=== PATIENT | male | born 1955 | race Caucasian/White ===

== ENCOUNTER 2016-11-15 02:28 | Emergency (ER) ==
[2016-11-15 03:08] LABS: MANUAL DIFF NEEDED? NO
[2016-11-15 03:12] LABS: BASO% 1.4 % (0.0-0.8); EOS# 0.01 X1000 (0.0-0.7); EOS% 0.2 % (0.0-10.0); HEMATOCRIT 37.9 % (42.0-52.0); HEMOGLOBIN 13.5 g/dL (14.0-18.0); IMM GRAN# 0.03 X1000 (0.0-0.04); IMM GRAN% 0.6 % (0.0-0.5); MCH 34.2 PG (27-31); MCHC 35.6 g/dL (33-37); MCV 95.9 FL (81-99); MONO# 0.96 X1000 (0.11-0.59); MONO% 18.5 % (1.7-9.3); NEUT% 52.3 % (42.2-75.2); PLT 199 X1000 (130-400); RBC 3.95 XMIL (4.7-6.1)
[2016-11-15] MEDS ORDERED: VALIUM IV ONE (03:21)
[2016-11-15] MEDS ORDERED: REGLAN IV ONE (03:21)
--- NOTE | 2016-11-15 03:28 | PROVIDER DOCUMENTATION ---
[id number] Abuse/Overdose - General Chief Complaint: Abdominal Pain Stated Complaint: STOMACH PAIN/HIGH BP Time Seen by Provider: 11/15/16 03:06 Source: patient, family Allergies/Adverse Reactions: Allergies Allergy/AdvReac Type Severity Reaction Status Date / Time codeine Allergy HIVES Verified 11/15/16 02:45 Home Medications: Home Medication List Medication Instructions Recorded Confirmed Last Taken Type Allopurinol 300 mg PO QHS 10/21/15 11/15/16 10/20/15 History Clopidogrel Bisulfate [Plavix] 75 mg PO QHS 10/21/15 11/15/16 10/20/15 History Montelukast Sodium [Singulair] 10 mg PO DAILY 10/21/15 11/15/16 10/20/15 History Omeprazole [Prilosec] 40 mg PO DAILY #30 capsule. 10/22/15 11/15/16 Unknown Rx Azelastine 205.5 Mcg Nasal Spr 1 spray DAILY PRN 11/15/16 11/15/16 Unknown History [Astepro Nasal Zalma] Lisinopril/Hydrochlorothiazide 1 tab PO DAILY 11/15/16 11/15/16 Unknown History [Lisinopril-Hctz 10-12.5 mg Tab] Metoclopramide [Reglan] 5 mg PO TID 11/15/16 11/15/16 Unknown History SIMVAstatin [Zocor] 40 mg PO HS 11/15/16 11/15/16 Unknown History - History of Present Illness-Drug/Alcohol This episode of drinking or use began:: other (3 months) Severity: reports: severe (1/2 gallon / day) Situational problems related to:: reports: lost job Psychiatric Complaints: reports: agitated Associated Symptoms: reports: fatigue, headaches Any injuries associated with this episode of intoxication?: No Similar Symptoms Previously?: Yes Recently seen or treated by another doctor?: No - Substance Abuse Substance Use: reports: alcohol Age drug/alcohol abuse began?: 13 - Alcohol Abuse Last Drink?: 02:00 Type and amount of last drink?: vodka Usually drinks:: daily Usual alcohol intake amount?: 1/2 gal - Detox/Hospitalizations Previous detox/rehab admissions?: Yes Where was last detox?: [facility] Currently enrolled in a Methadone Program?: No - Overdose Intentional drug overdose?: No Suicide Risk Assessment: male sex, drug or ETOH abuse Clinician's estimation of suicide risk?: uncertain risk Review of Systems - Adult - REVIEW OF SYSTEMS - ADULT Constitutional: reports: fatique, night sweats Eyes: reports: no symptoms reported Ears, Nose, Mouth & Throat: reports: no symptoms reported Cardiovascular: reports: no symptoms reported Respiratory: reports: no symptoms reported Gastrointestinal: reports: abdominal pain, nausea, vomiting Genitourinary: reports: no symptoms reported Musculoskeletal: reports: no symptoms reported Integumentary: reports: no symptoms reported Neurological: reports: headache/migraines Psychiatric: reports: no symptoms reported Endocrine: reports: no symptoms reported Hematologic/Lymphatic: reports: no symptoms reported Allergic/Immunologic: reports: no symptoms reported All Other Systems: Reviewed and Negative Past History - Adult - PAST MEDICAL HISTORY-ADULT Review of Records: reports: Old Records Reviewed, Nursing Assessment Review, Medications Reviewed, Social history reviewed & non-contributory. Major Childhood Illnesses: reports: denies history Cardiovascular: reports: HTN Respiratory: reports: COPD Gastrointestinal: reports: denies history Obstetrical/Gynecological: reports: denies history Genitourinary: reports: denies history Musculoskeletal: reports: denies history Neurological: reports: denies history Psychiatric: reports: depression Endocrine/Immune: reports: denies history Other Conditions: reports: denies history - PRIOR SURGERIES/PROCEDURES Surgical/Procedure History: reports: reviewed, not pertinent - PRIOR HOSPITALIZATIONS Prior Hospitalizations: reports: for similar symptoms - IMMUNIZATION STATUS Childhood Immunizations: UTD Flu Vaccine: UTD - FAMILY HISTORY Family History: reviewed, not pertinent - SOCIAL HISTORY Smoking: cigarettes Substance Use: none presently/history of abuse Alcohol Use Frequency: every day Number of drinks per typical drinking period:: 16-20 drinks Living Situation: family Physical Exam-General - PHYSICAL EXAM-ADULT Initial Vital Signs Reviewed: Yes - CONSTITUTIONAL General Appearance: severe distress, obese - EYES Eyes: PERRL/EOMI, sclera injected - HEAD, EARS, NOSE, MOUTH & THROAT HENMT: normocephalic/atraumatic, moist mucous membranes, normal ENT inspection, TMs normal, pharynx normal - NECK Neck: non-tender, full range of motion - RESPIRATORY Respiratory: no respiratory distress, crackles - CARDIOVASCULAR Cardiovascular: regular rate, rhythm, tachycardia - CHEST (BREASTS) Chest/Breast: deferred - GASTROINTESTINAL (ABDOMEN) Abdominal Exam: normal bowel sounds, distended, tenderness (epigastric) - GENITOURINARY Male Genitalia: deferred Rectal Exam: deferred Hemoccult Exam: deferred - LYMPHATIC Lymphatic: no adenopathy - MUSCULOSKELETAL Back Exam: no CVA tenderness, no vertebral tenderness Extremity: normal range of motion, non-tender, normal gait, no pedal edema Peripheral Pulses: radial (R): 3+, radial (L): 3+ - SKIN Integumentary: normal color, normal turgor - NEUROLOGIC Neurologic: grossly normal, no motor/sensory deficits - PSYCHIATRIC Psych/Mental Status: oriented x 3, anxious, disheveled, depressed affect Departure - Departure Time of Disposition Order: 06:00 DIAGNOSIS: Alcohol withdrawal delirium Disposition: [facility] Certified Medical Emergency: Emergent Condition: Fair Additional Instructions: see intake at [facility] this A.M.
[2016-11-15 03:46] LABS: AGAP 30; ALBUMIN 4.6 g/dL (3.5-5.0); ALKALINE PHOSPHATASE 58 U/L (32-122); AMYLASE 74 U/L (20-200); BUN 12 mg/dL (8-22); CALCIUM 8.4 mg/dL (8.8-10.2); CHLORIDE 83 mmol/L (98-107); COSMO 255; GOT 87 U/L (10-34); GPT 60 U/L (10-44); LIPASE 112 U/L (13-60); POTASSIUM 3.6 mmol/L (3.5-5.1); SODIUM 127 mmol/L (136-145); TCO2 14 mmol/L (25-35); TOTAL PROTEIN 7.2 g/dL (6.3-8.3)
[2016-11-15] MEDS ORDERED: PHENERGAN IV ONE (05:40)
[2016-11-15] MEDS ORDERED: SODIUM CHLORIDE 0.9% INJ ONE (05:40)
[2016-11-15 06:05] VITALS: BP 144/97
== END 2016-11-15 06:04 | disposition home or self-care (01) ==
LOC: P.ED 02:28
DX: F10.231 Alcohol dependence with withdrawal delirium (principal); R53.83 Other fatigue; R51 Headache; R61 Generalized hyperhidrosis; R11.2 Nausea with vomiting, unspecified; I10 Essential (primary) hypertension; R00.0 Tachycardia, unspecified; R10.13 Epigastric pain; J44.9 Chronic obstructive pulmonary disease, unspecified; E66.9 Obesity, unspecified; F32.9 Major depressive disorder, single episode, unspecified; F17.210 Nicotine dependence, cigarettes, uncomplicated; Z79.51 Long term (current) use of inhaled steroids; Z79.899 Other long term (current) drug therapy; Z79.02 Long term (current) use of antithrombotics/antiplatelets
CPT/HCPCS: 80053; 82150; 83690; 85025; 96374; 96375; J2550; J2765; J3360

== ENCOUNTER 2016-11-15 10:57 | Inpatient (IN) ==
[2016-11-15] MEDS ORDERED: M.V.I.-12 10 ML, FOLIC ACID 1 MG, MAGNESIUM SULFATE 1 GM, THIAMINE 100 MG in NS 1,000 ML IV ONE (12:43)
[2016-11-15] MEDS ORDERED: MAALOX PLUS LIQUID PO PRN (12:43)
[2016-11-15] MEDS ORDERED: SENOKOT PO PRN (12:43)
[2016-11-15] MEDS ORDERED: PHENERGAN PO PRN (12:43)
[2016-11-15] MEDS ORDERED: DULCOLAX PR PRN (12:43)
[2016-11-15] MEDS ORDERED: ATIVAN PO PRN (12:43)
[2016-11-15] MEDS ORDERED: MOTRIN PO PRN (12:43)
[2016-11-15] MEDS ORDERED: AMBIEN PO PRN (12:43)
[2016-11-15] MEDS ORDERED: ZOFRAN IV PRN (12:43)
[2016-11-15] MEDS ORDERED: IMODIUM PO PRN (12:43)
[2016-11-15] MEDS ORDERED: SALINE LOCK IV FLUID XX ONE (12:43)
[2016-11-15] MEDS ORDERED: TUBERSOL ID ONE (12:43)
[2016-11-15] MEDS ORDERED: BENTYL PO PRN (12:43)
[2016-11-15] MEDS: LIBRIUM PO SCH ×2 (13:06→18:57)
[2016-11-15 13:42] LABS: MANUAL DIFF NEEDED? NO
[2016-11-15 13:44] LABS: BASO% 0.3 % (0.0-0.8); EOS# 0.01 X1000 (0.0-0.7); EOS% 0.2 % (0.0-10.0); HEMOGLOBIN 13.2 g/dL (14.0-18.0); IMM GRAN# 0.03 X1000 (0.0-0.04); IMM GRAN% 0.5 % (0.0-0.5); LYMPH% 19.3 % (20.5-51.1); MCH 33.8 PG (27-31); MCHC 35.7 g/dL (33-37); MCV 94.6 FL (81-99); MONO# 0.99 X1000 (0.11-0.59); MONO% 15.9 % (1.7-9.3); MPV 9.4 FL (7.4-10.4); NEUT% 63.8 % (42.2-75.2); PLT 187 X1000 (130-400); RBC 3.91 XMIL (4.7-6.1)
[2016-11-15 14:07] LABS: AGAP 22; ALBUMIN 4.7 g/dL (3.5-5.0); ALKALINE PHOSPHATASE 60 U/L (32-122); AMYLASE 82 U/L (20-200); BUN 14 mg/dL (8-22); CALCIUM 8.9 mg/dL (8.8-10.2); CHLORIDE 81 mmol/L (98-107); COSMO 253; GOT 107 U/L (10-34); GPT 61 U/L (10-44); LIPASE 136 U/L (13-60); POTASSIUM 3.4 mmol/L (3.5-5.1); SODIUM 124 mmol/L (136-145); TCO2 21 mmol/L (25-35); TOTAL PROTEIN 7.3 g/dL (6.3-8.3)
[2016-11-15 14:09] LABS: INR 1.01 (0.86-1.15); PROTIME 13.6 Seconds (12.1-15.5); PTT PL 24.1 Seconds (22.6-43.9)
[2016-11-15 14:23] LABS: URINE SOURCE VOIDED
[2016-11-15 14:53] LABS: BILIRUBIN URINE NEGATIVE (NEGATIVE); BLOOD URINE TRACE (NEGATIVE); CLARITY CLEAR (CLEAR); COLOR AMBER; GLUCOSE URINE NEGATIVE (NEGATIVE); LEUKOCYTES URINE TRACE (NEGATIVE); NITRITE URINE NEGATIVE (NEGATIVE); PH URINE 6.5; PROTEIN URINE 1+(30 mg/dL) mg/dL (NEGATIVE); SP GRAVITY URINE 1.015; URINE MICROSCOPIC NEEDED? YES; UROBILINOGEN URINE 4+(12 mg/dL)
[2016-11-15 15:08] LABS: URINE EPITHELIAL CELLS <10 /HPF (<10); URINE RBC <10 /HPF (<10); URINE WBC <10 /HPF (<10)
[2016-11-15 15:11] LABS: UR AMPHETAMINES QUAL NONE DETECTED (NONE DETECT); UR BARBITUATES QUAL NONE DETECTED (NONE DETECT); UR BENZODIAZEPIN QUAL NONE DETECTED (NONE DETECT); UR CANNABINOIDS QUAL NONE DETECTED (NONE DETECT); UR COCAINE QUAL NONE DETECTED (NONE DETECT); UR MDMA QUAL NONE DETECTED (NONE DETECT); UR METHADONE QUAL NONE DETECTED (NONE DETECT); UR METHAMPHETAMINE QUAL NONE DETECTED (NONE DETECT); UR OPIATES QUAL NONE DETECTED (NONE DETECT); UR OXYCODONE QUAL NONE DETECTED (NONE DETECT); UR PCP QUAL NONE DETECTED (NONE DETECT); UR TCA QUAL NONE DETECTED (NONE DETECT)
[2016-11-16] MEDS: LIBRIUM PO SCH ×4 (00:51→19:10)
[2016-11-16 06:22] LABS: HEMATOCRIT 39.1 % (42.0-52.0); HEMOGLOBIN 13.4 g/dL (14.0-18.0); MCH 33.3 PG (27-31); MCHC 34.3 g/dL (33-37); RBC 4.03 XMIL (4.7-6.1)
[2016-11-16 06:43] LABS: AGAP 14; ALBUMIN 4.3 g/dL (3.5-5.0); ALKALINE PHOSPHATASE 62 U/L (32-122); BUN 11 mg/dL (8-22); CALCIUM 9.4 mg/dL (8.8-10.2); CHLORIDE 92 mmol/L (98-107); COSMO 263; GOT 203 U/L (10-34); GPT 84 U/L (10-44); MAGNESIUM 1.9 mg/dL (1.5-2.7); POTASSIUM 3.3 mmol/L (3.5-5.1); SODIUM 130 mmol/L (136-145); TCO2 24 mmol/L (25-35); TOTAL PROTEIN 6.9 g/dL (6.3-8.3)
[2016-11-16] MEDS ORDERED: LIBRIUM PO ONE (08:12)
[2016-11-16] MEDS ORDERED: HYDROCHLOROTHIAZIDE PO SCH (09:00)
[2016-11-16] MEDS ORDERED: VITAMIN B-1 PO SCH (09:00)
[2016-11-16] MEDS ORDERED: SINGULAIR PO SCH (09:00)
[2016-11-16] MEDS ORDERED: MULTI-VITAMIN PO SCH (09:00)
[2016-11-16] MEDS ORDERED: PRINIVIL PO SCH (09:00)
[2016-11-16] MEDS ORDERED: FOLIC ACID PO SCH (09:00)
[2016-11-16] MEDS: REGLAN PO SCH ×3 (09:28→19:09)
[2016-11-16] MEDS: NICODERM PATCH TD SCH (09:32)
[2016-11-16] MEDS: ATIVAN IM PRN ×2 (10:08→12:53)
[2016-11-16] MEDS ORDERED: NS 1,000 ML ONE (12:04)
--- NOTE | 2016-11-16 12:07 | PROGRESS NOTE ---
DATE: 11/16/2016 SUBJECTIVE: Patient is confused this morning. He is easily reoriented. He initially thought he was at his daughter's house and then realized he was in the hospital. PHYSICAL: Temp 97 degrees, pulse 106-115, BP 132-148, saturation 98% on room air.General: Patient is well developed, well nourished. He is in no respiratory distress. He is awake, alert, confused at times but easily reoriented. He still weak and fatigued. HEENT: Normocephalic. Neck: Supple. CV: Tachycardia. No murmurs. Chest: Relevant relatively clear. Nonlabored. No wheezing. Abdomen: Soft. Extremities: Moves all extremities. Neurologic: No changes. ASSESSMENT: 1. Acute alcohol withdrawal and continued stabilization. 2. Hypertension. 3. Gout. 4. High cholesterol. 5. Adult failure to thrive. 6. Hyponatremia improved. 7. Hypokalemia improved. 8. Acute hepatitis secondary to chronic alcoholism. PLAN: We will continue patient on Librium. Will not taper his dose currently. We will give him 1 extra dose this morning. We will continue to follow. Again attempted to answer questions to his son regarding the perils of alcohol and alcoholism and alcohol withdrawal.
[2016-11-16] MEDS: NS 1,000 ML IV SCH (12:50)
[2016-11-16] MEDS: ATIVAN 20 MG in NS 190 ML IV SCH ×2 (12:51→16:21)
[2016-11-16] MEDS ORDERED: HALDOL ONE (13:24)
[2016-11-16] MEDS ORDERED: BENADRYL ONE (13:24)
[2016-11-16] MEDS ORDERED: HALDOL IV ONE (13:30)
[2016-11-16] MEDS ORDERED: BENADRYL IV ONE (13:30)
[2016-11-16 14:54] LABS: URINE CULTURE PL NEEDED? NO
[2016-11-16 15:29] LABS: BILIRUBIN URINE NEGATIVE (NEGATIVE); BLOOD URINE NEGATIVE (NEGATIVE); CLARITY CLEAR (CLEAR); COLOR YELLOW; GLUCOSE URINE NEGATIVE (NEGATIVE); LEUKOCYTES URINE NEGATIVE (NEGATIVE); NITRITE URINE NEGATIVE (NEGATIVE); PROTEIN URINE NEGATIVE (NEGATIVE); SP GRAVITY URINE 1.005; UROBILINOGEN URINE NORMAL
[2016-11-16 15:32] LABS: URINE SOURCE CLEAN CATCH
[2016-11-16 15:33] LABS: URINE EPITHELIAL CELLS <10 /HPF (<10); URINE RBC <10 /HPF (<10); URINE WBC <10 /HPF (<10)
[2016-11-16] MEDS: BENADRYL IV PRN (20:17)
[2016-11-16] MEDS: HALDOL IV PRN (20:17)
[2016-11-16] MEDS ORDERED: PLAVIX PO SCH (21:00)
[2016-11-16] MEDS ORDERED: ZYLOPRIM PO SCH (21:00)
[2016-11-17] MEDS: LIBRIUM PO SCH ×2 (00:07→05:44)
[2016-11-17] MEDS: HALDOL IV PRN ×3 (00:08→09:04)
[2016-11-17] MEDS: BENADRYL IV PRN ×3 (00:08→09:04)
[2016-11-17] MEDS: ATIVAN 20 MG in NS 190 ML IV SCH ×2 (02:17→20:30)
[2016-11-17] MEDS: NS 1,000 ML IV SCH ×3 (05:44→21:58)
--- NOTE | 2016-11-17 06:21 | EKG Report ---
Test Performed on : 11/17/2016 06:14:03 AM Test Reason : cp Blood Pressure : / mmHG Vent. Rate : 102 BPM Atrial Rate : 102 BPM P-R Int : 136 ms QRS Dur : 096 ms QT Int : 370 ms P-R-T Axes : 031 -10 -18 degrees QTc Int : 482 ms Sinus tachycardia. Nonspecific T wave abnormality Abnormal ECG When compared with ECG of 22-OCT-2015 07:21, Vent. rate has increased BY 39 BPM Nonspecific T wave abnormality now evident in Inferior leads Nonspecific T wave abnormality now evident in Anterolateral leads Confirmed by Jean Nunez MD ([id number]) on 11/23/2016 1:25:35 AM
[2016-11-17] MEDS ORDERED: PRILOSEC PO SCH (07:00)
[2016-11-17] MEDS ORDERED: PROTONIX IV SCH (08:15)
[2016-11-17] MEDS ORDERED: SODIUM CHLORIDE 0.9% INJ SCH (08:15)
[2016-11-17] MEDS: NICODERM PATCH TD SCH (08:16)
[2016-11-17 08:57] LABS: HEMOGLOBIN 12.2 g/dL (14.0-18.0); MCH 33.4 PG (27-31); MCHC 33.9 g/dL (33-37); MCV 98.6 FL (81-99); MPV 9.7 FL (7.4-10.4); RBC 3.65 XMIL (4.7-6.1)
[2016-11-17 09:23] LABS: INR 1.02 (0.86-1.15); PROTIME 13.7 Seconds (12.1-15.5)
[2016-11-17 09:43] LABS: AGAP 17; ALBUMIN 3.7 g/dL (3.5-5.0); ALKALINE PHOSPHATASE 59 U/L (32-122); BUN 13 mg/dL (8-22); CALCIUM 8.4 mg/dL (8.8-10.2); CHLORIDE 95 mmol/L (98-107); COSMO 268; GOT 126 U/L (10-34); GPT 93 U/L (10-44); MAGNESIUM 1.7 mg/dL (1.5-2.7); POTASSIUM 2.8 mmol/L (3.5-5.1); SODIUM 134 mmol/L (136-145); TCO2 22 mmol/L (25-35); TOTAL PROTEIN 6.3 g/dL (6.3-8.3)
[2016-11-17] MEDS ORDERED: FOLIC ACID IV SCH ×6 (11:30)
[2016-11-17] MEDS ORDERED: POTASSIUM CHLORIDE IV SCH ×6 (11:30)
[2016-11-17] MEDS ORDERED: M V I IV SCH ×6 (11:30)
[2016-11-17] MEDS ORDERED: [UNRECOGNIZED DRUG - OTHER] IV SCH ×6 (11:30)
[2016-11-17] MEDS ORDERED: THIAMINE IV SCH ×6 (11:30)
[2016-11-17] MEDS: POTASSIUM CHLORIDE 20 MEQ/SWI 100 ML IV SCH ×2 (12:22→14:54)
[2016-11-18 06:45] LABS: HEMATOCRIT 37.7 % (42.0-52.0); HEMOGLOBIN 12.6 g/dL (14.0-18.0); MCH 33.4 PG (27-31); MCHC 33.4 g/dL (33-37); MPV 9.9 FL (7.4-10.4); RBC 3.77 XMIL (4.7-6.1)
[2016-11-18 06:46] LABS: AGAP 14; BUN 12 mg/dL (8-22); CALCIUM 8.2 mg/dL (8.8-10.2); CHLORIDE 99 mmol/L (98-107); COSMO 268; MAGNESIUM 2.1 mg/dL (1.5-2.7); POTASSIUM 3.1 mmol/L (3.5-5.1); SODIUM 134 mmol/L (136-145); TCO2 21 mmol/L (25-35)
[2016-11-18] MEDS: SODIUM CHLORIDE 0.9% INJ SCH (09:35)
[2016-11-18] MEDS: LOVENOX SUBQ SCH (09:35)
[2016-11-18] MEDS: PROTONIX IV SCH (09:35)
[2016-11-18] MEDS: NICODERM PATCH TD SCH (09:35)
[2016-11-18] MEDS: LIBRIUM PO SCH ×3 (10:46→22:21)
[2016-11-18] MEDS: POTASSIUM CHLORIDE IV SCH ×6 (10:49)
[2016-11-18] MEDS: THIAMINE IV SCH ×6 (10:49)
[2016-11-18] MEDS: [UNRECOGNIZED DRUG - OTHER] IV SCH ×6 (10:49)
[2016-11-18] MEDS: MAGNESIUM SULFATE IV SCH ×6 (10:49)
[2016-11-18] MEDS: FOLIC ACID IV SCH ×6 (10:49)
[2016-11-18] MEDS ORDERED: KLOR-CON PO ONE (11:30)
--- NOTE | 2016-11-18 11:56 | PROGRESS NOTE ---
DATE: 11/18/2016 SUBJECTIVE: Patient has no focal complaints. He is eating a popsicle. He is up, and seems to be more awake and alert. Denies any focal complaints. No nausea or vomiting. No abdominal pain. PHYSICAL EXAMINATION: Vital signs: Blood pressure 150/91, heart rate of 95, respiratory rate of 22, and temperature 98 degrees. General: In no acute distress. HEENT: Pupils equal, round, reactive to light. Sclerae are anicteric. Neck: Supple. Cardiovascular: Regular rate and rhythm. No murmurs, gallops, or rubs. No displaced PMI. Pulmonary: Bilateral breath sounds. Clear to auscultation, with no increased respiratory effort. Gastrointestinal: Soft, nontender, nondistended. Bowel sounds were positive. No tenderness to palpation. No hepatosplenomegaly, although abdomen was protuberant. Extremities: Dorsalis pedis pulses 2+ bilaterally, and no edema appreciated. LABORATORY DATA: Hemoglobin and hematocrit 12 and 37, platelets of 180,000. Chemistries: Potassium 3.1 phos of 1.8. PROBLEM LIST: 1. Alcohol withdrawal syndrome. He seems to be improving. We will continue to wean Ativan and switch him to Librium taper. Continue banana bag and follow. 2. Hypokalemia. We will supplement and follow. 3. Gout. Continue to monitor. 4. Anemia. Appears to be stable. DISPOSITION: Hopefully, can transition to the floor today. We will advance his diet. Continue to monitor. He may need a couple of more days, at least, if he continues to improve.
[2016-11-18] MEDS: ATIVAN IM PRN (12:43)
[2016-11-18] MEDS ORDERED: LIBRIUM PO ONE (12:52)
[2016-11-18] MEDS: TYLENOL PO PRN (12:56)
[2016-11-18] MEDS: NS 1,000 ML IV SCH (16:06)
--- NOTE | 2016-11-18 18:58 | EKG Report ---
Test Performed on : 11/18/2016 6:03:55 PM Test Reason : rhythm change Blood Pressure : / mmHG Vent. Rate : 097 BPM Atrial Rate : 097 BPM P-R Int : 140 ms QRS Dur : 084 ms QT Int : 358 ms P-R-T Axes : 039 018 020 degrees QTc Int : 454 ms Normal sinus rhythm. Normal ECG When compared with ECG of 17-NOV-2016 06:14, (Unconfirmed) No significant change was found Confirmed by Jean Nunez MD ([id number]) on 11/23/2016 1:22:58 AM
[2016-11-18 19:09] LABS: MAGNESIUM 2.2 mg/dL (1.5-2.7); POTASSIUM 3.4 mmol/L (3.5-5.1)
[2016-11-19] MEDS: ATIVAN IV PRN ×4 (00:36→19:48)
[2016-11-19] MEDS: NS 1,000 ML IV SCH ×2 (00:36→13:11)
[2016-11-19] MEDS: BENADRYL IV PRN ×2 (03:56→22:15)
[2016-11-19] MEDS: LIBRIUM PO SCH ×4 (04:02→22:15)
[2016-11-19 05:58] LABS: HEMATOCRIT 35.4 % (42.0-52.0); HEMOGLOBIN 11.8 g/dL (14.0-18.0); MCH 33.2 PG (27-31); MCHC 33.3 g/dL (33-37); MCV 99.7 FL (81-99); MPV 9.6 FL (7.4-10.4); RBC 3.55 XMIL (4.7-6.1)
[2016-11-19 06:14] LABS: AGAP 14; BUN 8 mg/dL (8-22); CALCIUM 8.2 mg/dL (8.8-10.2); CHLORIDE 104 mmol/L (98-107); COSMO 276; MAGNESIUM 2.2 mg/dL (1.5-2.7); POTASSIUM 3.2 mmol/L (3.5-5.1); SODIUM 139 mmol/L (136-145); TCO2 21 mmol/L (25-35)
[2016-11-19 06:19] LABS: ALBUMIN 3.6 g/dL (3.5-5.0); DIRECT BILIRUBIN 0.3 mg/dL (0.00-0.20); TOTAL BILIRUBIN 0.7 mg/dL (0.20-1.00); TOTAL PROTEIN 5.7 g/dL (6.3-8.3)
[2016-11-19] MEDS: SODIUM CHLORIDE 0.9% INJ SCH (08:11)
[2016-11-19] MEDS: LOVENOX SUBQ SCH (08:11)
[2016-11-19] MEDS: PROTONIX IV SCH (08:11)
[2016-11-19] MEDS: NICODERM PATCH TD SCH (08:44)
[2016-11-19] MEDS ORDERED: KLOR-CON PO ONE (08:58)
[2016-11-19] MEDS ORDERED: HYDROCHLOROTHIAZIDE PO SCH (09:00)
[2016-11-19] MEDS: PRINIVIL PO SCH (09:17)
--- NOTE | 2016-11-19 10:11 | EKG Report ---
Test Performed on : 11/19/2016 09:43:07 AM Test Reason : evaluate rythm Blood Pressure : / mmHG Vent. Rate : 101 BPM Atrial Rate : 101 BPM P-R Int : 146 ms QRS Dur : 092 ms QT Int : 352 ms P-R-T Axes : 048 026 000 degrees QTc Int : 456 ms Sinus tachycardia. Otherwise normal ECG When compared with ECG of 18-NOV-2016 18:03, (Unconfirmed) No significant change was found Confirmed by Jean Nunez MD ([id number]) on 11/23/2016 1:22:23 AM
[2016-11-19] MEDS: MAGNESIUM SULFATE IV SCH ×6 (10:48)
[2016-11-19] MEDS: POTASSIUM CHLORIDE IV SCH ×6 (10:48)
[2016-11-19] MEDS: FOLIC ACID IV SCH ×6 (10:48)
[2016-11-19] MEDS: THIAMINE IV SCH ×6 (10:48)
[2016-11-19] MEDS: [UNRECOGNIZED DRUG - OTHER] IV SCH ×6 (10:48)
[2016-11-19] MEDS ORDERED: POTASSIUM PHOSPHATE 40 MEQ in NS 250 ML IV ONE (14:13)
--- NOTE | 2016-11-19 14:45 | PROGRESS NOTE ---
DATE: 11/19/2016 SUBJECTIVE: The patient has no focal complaints. OBJECTIVE: Vital Signs: Blood pressure 142/81, heart rate 97, respiratory rate 20, temperature 98.1 degrees. General: A well-developed male in no acute distress, somewhat lethargic. Cardiovascular: Regular rate and rhythm. Pulmonary: Bilateral breath sounds. Clear to auscultation. Gastrointestinal: Soft, nontender, nondistended. Bowel sounds are positive. Extremities: No clubbing or cyanosis. Lymphatics: No peripheral edema. LABORATORY DATA: Potassium 3.2. Hemoglobin and hematocrit are okay. Phos is 2.1. AST and ALT are down to 54 and 71. PROBLEM LIST: 1. Alcohol withdrawal syndrome with delirium. Appears to be improved. Continue Librium taper, banana bag, and follow. 2. Hypokalemia and hypomagnesemia. Will supplement and follow. 3. Hypophosphatemia. Will supplement and follow. 4. Hypertension. Continue his regular medications. DISPOSITION: Hopefully, can get to the floor either later today or tomorrow.
[2016-11-19] MEDS: HALDOL IV PRN ×2 (19:47→22:48)
[2016-11-20] MEDS: ATIVAN IV PRN (00:21)
[2016-11-20] MEDS: HALDOL IV PRN (00:53)
[2016-11-20] MEDS: NS 1,000 ML IV SCH (03:41)
[2016-11-20 06:32] LABS: MCHC 33.3 g/dL (33-37); MCV 98.9 FL (81-99); MPV 10.2 FL (7.4-10.4); RBC 3.64 XMIL (4.7-6.1)
[2016-11-20 06:58] LABS: AGAP 15; BUN 6 mg/dL (8-22); CALCIUM 8.5 mg/dL (8.8-10.2); CHLORIDE 101 mmol/L (98-107); COSMO 269; MAGNESIUM 2.2 mg/dL (1.5-2.7); SODIUM 136 mmol/L (136-145); TCO2 21 mmol/L (25-35)
[2016-11-20] MEDS: PRINIVIL PO SCH (10:41)
[2016-11-20] MEDS: NICODERM PATCH TD SCH (10:42)
[2016-11-20] MEDS: LIBRIUM PO SCH ×3 (10:42→20:23)
[2016-11-20] MEDS: SODIUM CHLORIDE 0.9% INJ SCH (10:42)
[2016-11-20] MEDS: PROTONIX IV SCH (10:42)
[2016-11-20] MEDS: LOVENOX SUBQ SCH (10:42)
[2016-11-20] MEDS ORDERED: CATAPRES PO ONE (11:35)
[2016-11-20] MEDS: THIAMINE IV SCH ×6 (11:48)
[2016-11-20] MEDS: [UNRECOGNIZED DRUG - OTHER] IV SCH ×6 (11:48)
[2016-11-20] MEDS: MAGNESIUM SULFATE IV SCH ×6 (11:48)
[2016-11-20] MEDS: POTASSIUM CHLORIDE IV SCH ×6 (11:48)
[2016-11-20] MEDS: FOLIC ACID IV SCH ×6 (11:48)
--- NOTE | 2016-11-20 12:42 | PROGRESS NOTE ---
DATE: 11/20/2016 SUBJECTIVE: Still very confused. He had an episode yesterday where he got very agitated, pulled his IV out, and was trying to get up out of bed. Clinically, he is improved now, but is fairly lethargic. Does open his eyes and follow. OBJECTIVE: Vital Signs: Blood pressure 153/90, heart rate 94, respiratory rate of 21, temperature 98.3 degrees. General: A well-developed male in no acute distress. Head: Normocephalic, atraumatic. Eyes: Pupils equal, round, reactive to light. Extraocular movements were intact. Cardiovascular: Regular rate and rhythm. No displaced PMI. Pulmonary: Bilateral breath sounds. No increased respiratory effort. Gastrointestinal: Soft, nontender, nondistended. Bowel sounds are positive. No hepatosplenomegaly. Extremities: No clubbing or cyanosis. Lymphatic: No peripheral edema. Vascular: DP and PT pulses 2+. PROBLEM LIST: 1. Alcohol withdrawal syndrome. He is still on Librium and banana bag. We will continue to follow clinically. 2. Hypertension. I am going to add clonidine for withdrawal and hypertensive control. DISPOSITION: Pending resolution of his mental status issues.
[2016-11-20] MEDS: CATAPRES PO SCH (20:23)
[2016-11-21] MEDS: LIBRIUM PO SCH ×3 (03:26→17:40)
[2016-11-21 07:01] LABS: HEMATOCRIT 35.7 % (42.0-52.0); HEMOGLOBIN 11.8 g/dL (14.0-18.0); MCHC 33.1 g/dL (33-37); MCV 99.7 FL (81-99); MPV 9.8 FL (7.4-10.4); RBC 3.58 XMIL (4.7-6.1)
[2016-11-21 07:02] LABS: AGAP 14; BUN 9 mg/dL (8-22); CALCIUM 8.4 mg/dL (8.8-10.2); CHLORIDE 101 mmol/L (98-107); COSMO 268; POTASSIUM 4.2 mmol/L (3.5-5.1); SODIUM 135 mmol/L (136-145); TCO2 20 mmol/L (25-35)
[2016-11-21] MEDS: NICODERM PATCH TD SCH (09:32)
[2016-11-21] MEDS: LOVENOX SUBQ SCH (09:32)
[2016-11-21] MEDS: SODIUM CHLORIDE 0.9% INJ SCH (09:33)
[2016-11-21] MEDS: CATAPRES PO SCH ×2 (09:33→21:01)
[2016-11-21] MEDS: PRINIVIL PO SCH (09:33)
[2016-11-21] MEDS: PROTONIX IV SCH (09:33)
[2016-11-21] MEDS: THIAMINE IV SCH ×6 (11:46)
[2016-11-21] MEDS: [UNRECOGNIZED DRUG - OTHER] IV SCH ×6 (11:46)
[2016-11-21] MEDS: FOLIC ACID IV SCH ×6 (11:46)
[2016-11-21] MEDS: POTASSIUM CHLORIDE IV SCH ×6 (11:46)
[2016-11-21] MEDS: MAGNESIUM SULFATE IV SCH ×6 (11:46)
--- NOTE | 2016-11-21 14:11 | PROGRESS NOTE ---
DATE: 11/21/2016 SUBJECTIVE: The patient is asleep. No major complaints. Apparently he has been mentating more normally over the last little bit. OBJECTIVE: Vital signs: Blood pressure 140/77, heart rate 94, respiratory rate 26, temperature 98.2 degrees, 99% on room air. Cardiovascular: Regular rate and rhythm. Pulmonary: Bilateral breath sounds. Clear to auscultation. GI: Soft, nontender, nondistended. Bowel sounds are positive. LABORATORY DATA: Unremarkable. ASSESSMENT AND PLAN: 1. Alcohol withdrawal syndrome. He is doing well. I am going to titrate down on the Librium. 2. Hypertension. Continue Catapres and lisinopril. Vitals are improved. DISPOSITION: Pending resolution of his issues.
[2016-11-21] MEDS: ROBAXIN PO PRN (21:01)
[2016-11-21] MEDS: TYLENOL PO PRN (22:26)
[2016-11-22] MEDS: LIBRIUM PO SCH ×3 (04:53→17:51)
[2016-11-22 07:07] LABS: AGAP 15; BUN 9 mg/dL (8-22); CALCIUM 8.8 mg/dL (8.8-10.2); CHLORIDE 100 mmol/L (98-107); COSMO 269; MAGNESIUM 2.2 mg/dL (1.5-2.7); POTASSIUM 4.3 mmol/L (3.5-5.1); SODIUM 135 mmol/L (136-145); TCO2 20 mmol/L (25-35)
[2016-11-22] MEDS: LOVENOX SUBQ SCH (09:00)
[2016-11-22] MEDS: POTASSIUM CHLORIDE IV SCH ×6 (11:04)
[2016-11-22] MEDS: THIAMINE IV SCH ×6 (11:04)
[2016-11-22] MEDS: PRINIVIL PO SCH (11:04)
[2016-11-22] MEDS: MAGNESIUM SULFATE IV SCH ×6 (11:04)
[2016-11-22] MEDS: FOLIC ACID IV SCH ×6 (11:04)
[2016-11-22] MEDS: [UNRECOGNIZED DRUG - OTHER] IV SCH ×6 (11:04)
[2016-11-22] MEDS: PROTONIX IV SCH (11:04)
[2016-11-22] MEDS: TYLENOL PO PRN (12:10)
[2016-11-22] MEDS: ROBAXIN PO PRN (12:11)
--- NOTE | 2016-11-22 12:12 | PROGRESS NOTE ---
DATE: 11/22/2016 SUBJECTIVE: The patient is much more awake, alert. Still very flat affect but no direct complaints. OBJECTIVE: Vital signs: Blood pressure 98/66, heart rate of 88, respiratory rate 21, temperature 98.4 degrees, 96% on 2 L. General: A well-developed male, in no acute distress. Cardiovascular: Regular rate and rhythm. Pulmonary: Bilateral breath sounds. Clear to auscultation. GI: Soft, nontender, nondistended. Bowel sounds are positive. Extremities: No clubbing or cyanosis. Lymphatics: No peripheral edema. LABORATORY DATA: Sodium 135. Otherwise unremarkable. PROBLEM LIST: 1. Alcohol withdrawal syndrome with delirium he is slowly improving. Continue to taper down on Librium. 2. Hypertension. He is kind of trending on the low side so I am going to stop the clonidine and just continue lisinopril alone. 3. Hypokalemia, hypomagnesemia. Appears to be stable. 4. Disposition. Will progress with PT and decide if he is going to need rehab or further other potential issues.
[2016-11-22] MEDS: ATIVAN IV PRN (14:54)
--- NOTE | 2016-11-22 17:01 | Diag Imaging Result Document ---
PROCEDURE NAME: SHOULDER-LEFT - 11/22/2016 LEFT SHOULDER 3 VIEWS: FINDINGS: There are degenerative changes which are most prominent at the acromioclavicular joint. There is an apparent tiny cyst at the inferomedial margin of the humeral head. There is no fracture or dislocation identified. IMPRESSION: 1. Degenerative changes which are most prominent at the acromioclavicular joint. Apparent tiny cyst at inferior medial margin of the humeral head. 2. No evidence of fracture or dislocation. [facility]
[2016-11-23] MEDS: LIBRIUM PO SCH ×3 (02:02→17:10)
[2016-11-23] MEDS: ATIVAN IV PRN (02:42)
[2016-11-23] MEDS: SODIUM CHLORIDE 0.9% INJ SCH (08:45)
[2016-11-23] MEDS: PROTONIX IV SCH (08:45)
[2016-11-23] MEDS: PRINIVIL PO SCH (08:45)
[2016-11-23] MEDS: LOVENOX SUBQ SCH (08:53)
[2016-11-23] MEDS ORDERED: CATAPRES PO SCH (09:00)
[2016-11-23] MEDS: MOBIC PO SCH (13:20)
[2016-11-23] MEDS ORDERED: SOLU-MEDROL IV ONE ×2 (14:14→16:00)
--- NOTE | 2016-11-23 14:35 | HISTORY AND PHYSICAL ---
CHIEF COMPLAINT: Was confusion, altered sensorium. HPI: A 61-year-old, white male, with history of alcohol abuse, gout, CAD, hypertension, dyslipidemia. He presents initially for elective alcohol withdrawal inpatient program. He was initially a patient of Dr. Anderson with [facility]. You will have to refer to the notes on his initial presentation. However patient rapidly decompensated, apparently became disoriented. Initially he was actually doing fairly well but then got very agitated and ended up having to be put in the ICU and in restraints. At that point, he was converted over to a regular inpatient. He had to be placed on an Ativan drip. Banana bag was initiated. He was profoundly hypokalemic. In any case, the patient went through profound alcohol withdrawal syndrome. He has had a history of alcohol withdrawal syndrome issues about 10 days. Previously it took about 10 days completely to get him through this process. PAST MEDICAL HISTORY: 1. Again gout. 2. CAD. 3. Alcohol abuse. 4. Hypertension. 5. Dyslipidemia. 6. GERD. SURGICAL HISTORY: Per records. SOCIAL HISTORY: No tobacco. He does drink a significant amount of alcohol on a regular basis. Some tobacco use history. ALLERGIES: Codeine. MEDICATIONS: He is on allopurinol 300 daily, Plavix 75 daily, Singulair 10 daily, azelastine daily, lisinopril hydrochlorothiazide 10/12.5 daily, Reglan 5 t.i.d., Zocor 40 daily, Prilosec 40 daily. REVIEW OF SYSTEMS: Otherwise negative. PHYSICAL EXAMINATION: VITAL SIGNS: Blood pressure was 141/90, heart rate of 100, respiratory rate 16, temperature 97.7 degrees, 100% saturation currently on room air. HEENT: Pupils equal, round, reactive to light. Extraocular movements were intact. EAR/NOSE/THROAT: Moist mucous membranes. NECK: Supple. CARDIOVASCULAR EXAM: Regular rate and rhythm. No murmurs, gallops, or rubs. PULMONARY EXAM: Bilateral breath sounds. Clear to auscultation. GI: Soft, nontender, nondistended. Bowel sounds are positive. EXTREMITIES: No clubbing or cyanosis. LYMPHATICS: No peripheral edema. NEUROLOGICAL: Nonfocal. Initially, he was fairly sedated. Now he is in better position. LABORATORY DATA: On admission potassium 3.4, sodium 124. T bilirubin 1.2. Hemoglobin and hematocrit was 13 and 7. PROBLEM LIST: 1. Alcohol withdrawal syndrome. He had he was initially placed on an Ativan drip. Progressed to Librium taper. 2. Hypertension, maintained on his regular medications. 3. CAD appears to be stable. Continue to follow. DISPOSITION: Pending his course.
[2016-11-23] MEDS: PREDNISONE PO SCH (17:10)
[2016-11-24] MEDS: LIBRIUM PO SCH ×4 (02:11→20:41)
[2016-11-24] MEDS: ATIVAN PO PRN ×2 (04:00→20:41)
[2016-11-24] MEDS: LOVENOX SUBQ SCH (09:46)
[2016-11-24] MEDS: PROTONIX IV SCH (09:47)
[2016-11-24] MEDS: MOBIC PO SCH (09:47)
[2016-11-24] MEDS: PRINIVIL PO SCH (09:47)
[2016-11-24] MEDS: PREDNISONE PO SCH (09:47)
[2016-11-24] MEDS ORDERED: SOLU-MEDROL IM ONE ×2 (14:03→17:00)
--- NOTE | 2016-11-24 14:23 | PROGRESS NOTE ---
DATE: 11/24/2016 SUBJECTIVE: Patient has no focal complaints. OBJECTIVE: Vital Signs: Blood pressure 117/74, heart rate 102, respiratory rate 18, temperature 98.5 degrees. Cardiovascular: Regular rate and rhythm. Pulmonary: Bilateral breath sounds. Clear to auscultation. GI: Soft, nontender, nondistended. Bowel sounds are positive. Extremities: No clubbing or cyanosis. Lymphatics: No peripheral edema. Neurological: Nonfocal although he did have generalized slowing. PROBLEM LIST: 1. Alcohol withdrawal syndrome. We will continue the Librium taper. He is slowly doing better. 2. Hypokalemia has resolved. 3. Hypertension. We will continue his regular medications and follow. 4. Left shoulder arthritis. We will continue empiric treatment and monitor. 5. Likely home tomorrow.
[2016-11-24] MEDS: TYLENOL PO PRN (17:53)
[2016-11-25] MEDS: ATIVAN PO PRN ×2 (01:18→09:29)
[2016-11-25] MEDS: HALDOL IM PRN ×3 (02:44→22:13)
[2016-11-25] MEDS: PRILOSEC PO SCH (06:10)
[2016-11-25] MEDS: PRINIVIL PO SCH (09:28)
[2016-11-25] MEDS: MOBIC PO SCH (09:28)
[2016-11-25] MEDS: LOVENOX SUBQ SCH (09:28)
[2016-11-25] MEDS: PREDNISONE PO SCH (09:29)
[2016-11-25] MEDS: LIBRIUM PO SCH (09:29)
[2016-11-25] MEDS: TYLENOL PO PRN (09:29)
--- NOTE | 2016-11-25 14:03 | PROGRESS NOTE ---
DATE: 11/25/2016 SUBJECTIVE: Patient has no focal complaints. He continues to have a flat affect. OBJECTIVE: Vital Signs: Blood pressure is 114/80 with a heart rate of 86, respirations are 16, temperature is 97.8 degrees oral with room air sats 98-99%. Cardiovascular: Regular rate and rhythm, S1, S2 appreciated. Pulmonary: Breath sounds are clear with no increased work of breathing noted. Gastrointestinal: Abdomen is soft, nontender, nondistended with bowel sounds in all 4 quadrants. Extremities: No clubbing, cyanosis, or edema. Pulses are palpable x4. ASSESSMENT AND PLAN: 1. Alcohol withdrawal syndrome. We will continue with his current regimen. He is doing better. 2. Hypokalemia, resolved. Will continue to follow electrolytes. 3. Hypertension. We will continue his current regimen. 4. Left shoulder arthritis. We will continue his empiric treatment. 5. Disposition. Hopefully the patient will have a bed open up at [facility] in [place] tomorrow. Dictated by AYESHA Jamil for David Hagan MD pt examined, agree with above, pt starting to have withdrawal issues again, versus other process; possibly steroids vs mendications, will repeat labs and follow [facility]
[2016-11-25 18:30] LABS: HEMATOCRIT 41.1 % (42.0-52.0); HEMOGLOBIN 13.6 g/dL (14.0-18.0); MCH 33.1 PG (27-31); MCHC 33.1 g/dL (33-37); MPV 9.7 FL (7.4-10.4); RBC 4.11 XMIL (4.7-6.1)
[2016-11-25 18:57] LABS: AGAP 16; ALBUMIN 3.9 g/dL (3.5-5.0); ALKALINE PHOSPHATASE 63 U/L (32-122); BUN 19 mg/dL (8-22); CALCIUM 9.9 mg/dL (8.8-10.2); CHLORIDE 100 mmol/L (98-107); COSMO 278; GOT 43 U/L (10-34); GPT 65 U/L (10-44); POTASSIUM 4.6 mmol/L (3.5-5.1); SODIUM 137 mmol/L (136-145); TCO2 22 mmol/L (25-35); TOTAL PROTEIN 7.1 g/dL (6.3-8.3)
[2016-11-25] MEDS: LIBRIUM PO PRN (20:35)
[2016-11-25] MEDS: ROBAXIN PO PRN (20:36)
[2016-11-25] MEDS: FOLIC ACID PO SCH (20:41)
[2016-11-25] MEDS: VITAMIN B-1 PO SCH (20:41)
[2016-11-25] MEDS: THERA M PLUS PO SCH (20:43)
[2016-11-25] MEDS ORDERED: RISPERDAL M-TAB PO SCH (21:00)
[2016-11-26] MEDS: HALDOL IM PRN ×2 (00:55→03:28)
[2016-11-26] MEDS: ROBAXIN PO PRN (03:28)
[2016-11-26] MEDS: LIBRIUM PO PRN (03:28)
[2016-11-26] MEDS: TYLENOL PO PRN (03:28)
[2016-11-26] MEDS: PRILOSEC PO SCH (06:12)
[2016-11-26] MEDS: LIBRIUM PO SCH ×2 (08:31→13:14)
[2016-11-26] MEDS: VITAMIN B-1 PO SCH (08:31)
[2016-11-26] MEDS: FOLIC ACID PO SCH (08:31)
[2016-11-26] MEDS: PRINIVIL PO SCH (08:31)
[2016-11-26] MEDS: THERA M PLUS PO SCH (08:32)
[2016-11-26] MEDS: LOVENOX SUBQ SCH (08:32)
[2016-11-26] MEDS: MOBIC PO SCH (08:32)
[2016-11-26 15:34] VITALS: BP 115/77
--- NOTE | 2016-11-27 14:18 | HISTORY AND PHYSICAL ---
CHIEF COMPLAINT: Nausea and vomiting. HISTORY OF PRESENT ILLNESS: Patient is a 61-year-old male, who [facility] secondary to chronic alcoholism. Notes he has been drinking for several years. He did have a 2 year abstinence but has been drinking every day since he can remember. States he has been trying to stop but his withdrawal symptoms become too severe. SOCIAL HISTORY: Patient is retired. Lives at home in [place]. He is single. He has no children that live in the house. SUBSTANCE ABUSE HISTORY: Patient began drinking as early as age 14, currently drinks a fifth of whiskey a day. Does not smoke, drink or use other illicit substances. PAST MEDICAL HISTORY: Hypertension. He was in a treatment facility in 2013 for 8 days. MEDICATIONS: None. ALLERGIES: Codeine. REVIEW OF SYSTEMS: His CINA score is 26 secondary to intermittent nausea with frequent dry heaves, moderate tremors with his arms extended and paroxysmal sweating. He is anxious and nervous. He is unable to sit still. He is not sleeping well. He has a decreased oral intake. He has some occasional skin crawling and pins and needles. Denies any auditory hallucinations but does have visual disturbances. He has light sensitivity. He has a headache. He is unsure of what day it is. States he is frequently disoriented to date and time. Denies any blurred vision, change in vision. Denies any focalized numbness, tingling or weakness in his extremities. Denies any dysuria, frequency, urgency. Denies any hesitancy, polyuria or polydipsia. Denies any skin rashes, weight loss or weight gain. Denies any diarrhea, constipation or melena. PHYSICAL EXAMINATION: VITAL SIGNS: Reviewed and stable. He is awake, alert. He is currently oriented to person and place. He is pleasant to talk with. HEENT: Normocephalic, atraumatic. THO. NECK: Supple. CV: Regular rate. CHEST: Relatively clear. ABDOMEN: Soft. EXTREMITIES: Moves all extremities. NEUROLOGIC: No focal neurological changes. SKIN: Warm and dry. No rashes. ASSESSMENT: 1. Acute alcohol withdrawal. 2. Tremors. 3. Myalgias. 4. Paresthesias. 5. Paroxysmal sweating. 6. Hypertension. PLAN: We will admit patient to the hospital. We will place him on high-dose Librium taper. We will continue to follow. We will follow for withdrawal symptoms. cc: Heber Anderson MD
--- NOTE | 2016-11-27 14:18 | PROGRESS NOTE ---
DATE: 11/27/2016 SUBJECTIVE: Patient is sedated. He currently is on an Ativan drip. PHYSICAL EXAMINATION: He is awake, alert. He is in no distress. The patient is arousable but somnolent. He is in no respiratory distress. Vital signs reviewed and stable. He is able to wean down some on his Ativan. At one point, he required 4 mg an hour to keep him calm; currently he is on 2 mg. HEENT: Normocephalic, atraumatic. THO. Neck supple. CV: Regular rhythm and rate. Chest relatively clear. Abdomen soft. Extremities: Moves all extremities. ASSESSMENT: 1. Acute delirium tremens. 2. Tachycardia, improved, with Ativan drip. 3. Acute agitation, improved with Ativan drip. 4. Hypertension, stable. 5. Chronic alcoholism. PLAN: We will continue his Ativan drip and continue to follow. Continue to wean Ativan as tolerated. Further orders as needed. cc: Heber Anderson MD
--- NOTE | 2016-11-27 14:19 | DISCHARGE SUMMARY ---
ADMISSION DATE: 11/15/2016 DISCHARGE DATE: 11/26/2016 DIAGNOSES: 1. Alcohol withdrawal syndrome. 2. Hypertension. 3. Coronary artery disease. 4. Electrolyte imbalance. DIAGNOSTICS: 11/22/2016 shoulder x-ray: Degenerative changes most prominent at the acromioclavicular joint. Apparent tiny cyst at the margin of the humeral head. No evidence of fracture or dislocation. HOSPITAL COURSE: Mr. Gomez was admitted to the hospital on 11/15/[address] [facility] program for alcohol withdrawal. He had been in the hospital about 24 hours and he became combative, threatening to remove IV. He was noted at that time to be going through alcohol withdrawal. He was transferred to ICU and he was placed on alcohol withdrawal protocol. Over the next 3-4 days, he was weaned off of Ativan per protocol. At this time, he was cooperative. He was very quiet. He did not communicate well with staff, although he did cooperate with his care. He continued on Librium 3 times a day with folic acid, vitamin B1, and multivitamin replacement. We have continued his Risperdal. We did monitor vital signs and treat his blood pressure as appropriate. We monitored electrolytes and repleted as appropriate. Physical therapy has worked with the patient. He has cooperated in this. PHYSICAL EXAMINATION: Cardiovascular: Regular rate and rhythm. S1 and S2 are appreciated. Pulmonary: Breath sounds are clear, with no increased work of breathing noted. Gastrointestinal: Abdomen is soft, nontender, nondistended. Bowel sounds in all 4 quadrants. Extremities: No clubbing, cyanosis, or edema. Pulses are palpable x4. Calves are nontender. Neurologic: He does have some generalized slowing, but he is aware of being in the hospital. He does know his children and he will communicate at times. DISCHARGE MEDICATIONS: Astelin nose spray 1 spray daily. Allopurinol 300 at bedtime. Singulair 10 daily. Reglan 5 t.i.d. Plavix 75 at bedtime. Prilosec 40 daily. Zocor 40 at bedtime. Vitamin B1, 100 daily. Senokot 2 at bedtime. Risperdal 1 at bedtime. Thera-M Plus daily. Robaxin 750 q.6 hours p.r.n. Mobic 7.5 daily. Prinivil 10 daily. Folic acid 1 mg daily. Librium 50 mg t.i.d. DISCHARGE VITAL SIGNS: Blood pressure is 115/77, heart rate 97, respirations 18, temperature 98.2 degrees oral, and room air saturations are 97%. DISCHARGE ACTIVITY: Per protocol and per physical therapy. He needs to be up in a chair. DIET INSTRUCTION: Regular diet with Ensure supplements with meals and at bedtime. He is being discharged to rehabilitation in stable condition with family members present. This is a greater than 30-minute discharge. Dictated by AYESHA Jamil for Heber Anderson MD cc: AYESHA Jamil MD
--- NOTE | 2016-11-27 14:19 | PROGRESS NOTE ---
DATE: 11/16/2016 ADDENDUM REPORT SUBJECTIVE: Patient was noted to have tachycardia last night. Unfortunately, I was not called and therefore his Librium was not increased. This morning, he is awake and alert as noted on the previous notes. However approximately 2-3 hours after I saw him in the hospital, he became more disoriented, more confused and somewhat agitated and combative. PLAN: We will move him back to the ICU and increase his Librium. He was given an additional dose of Librium this morning but unfortunately it does not appear to be enough. We will start him on Ativan drip and follow. TIME SPENT: An additional 20 minutes spent in exam to total 35 today. cc: Heber Anderson MD
== END 2016-11-26 17:20 ==
LOC: EEVIPCON 10:57 → P.DIRADM 10:57 → P.MEDSURG 11:09 → P.ICU 11-16 11:05 → P.MEDSURG 11-22 17:25
PROVIDERS: ATTEND Internal Medicine